=== PATIENT | male | born 1965 | race Caucasian/White ===

== ENCOUNTER → 2022-03-05 | Emergency (ER) | payer OTHER ==
[~2022-03-05] VITALS: Ht 177.8 cm; Wt 71.7 kg
[~2022-03-05] MED LIST: HYDROCODONE/APAP 5/325MG TABLET ONE; HYDROCODONE/APAP 5/325MG TABLET PO ONE
[2022-03-05 08:48] VITALS: BP 145/88
--- NOTE | 2022-03-05 09:09 | NUR ---
SEEN AND EXAMINED BY DR ZAMORA
--- NOTE | 2022-03-05 11:53 | NUR ---
Patient discharged to home in stable condition. Written and verbal after care instructions given. Patient verbalizes understanding of instruction.
== END | disposition home or self-care (01) ==
LOC: ER 08:44
DX: S00.03XA Contusion of scalp, initial encounter (principal); M54.2 Cervicalgia; M25.512 Pain in left shoulder; I10 Essential (primary) hypertension; V43.52XA Car driver injured in collision with other type car in traffic accident, initial encounter; Y93.89 Activity, other specified; Y92.89 Other specified places as the place of occurrence of the external cause; Y99.8 Other external cause status
CPT/HCPCS: 99284; 72125; 71045; 73030; 70450; L0172